=== PATIENT | male | born 1950 | race American Indian/Alaskan Native ===

== ENCOUNTER 2019-01-12 11:23 | Day surgery (SDC) | payer OTHER ==
[2019-01-12] MEDS ORDERED: NACL 0.9% 1000 ML 1,000 ML ONE (14:22)
== END 2019-01-12 11:24 | disposition home or self-care (01) ==
LOC: GIO 11:23
PROVIDERS: ATTEND Internal Medicine Gastroenterology
DX: R13.10 Dysphagia, unspecified (principal); Z53.8 Procedure and treatment not carried out for other reasons
CPT/HCPCS: J7030